=== PATIENT | female | born 1990 | race Caucasian/White ===

== ENCOUNTER 2021-03-12 16:58 | Emergency (ER) | payer SELFPAY ==
[2021-03-12 17:10] VITALS: BP 113/89; PULSE 94; RESP 16; TEMP 36.4; O2SAT 100
--- NOTE | 2021-03-12 18:52 | ED.SKABFB ---
HPI - Skin/Abscess/Foreign Bdy General Chief complaint: Skin/Abscess/Foreign Body Stated complaint: blister on bottom of r foot Source: patient and RN notes reviewed Mode of arrival: ambulatory History of Present Illness HPI narrative: This is a 30-year-old female that presented to urgent care facility with multiple open wounds to the bottom of her her right foot. According to patient she wore some shoes that was too small for her feet and had to walk a long distance and as a result she developed multiple blisters to the bottom of her feet. She attempted to burst the blisters on her own with a burned needle. The patient denies SOB, CP, palpitation, extremity numbness, lightheadedness, dizziness, constipation, diarrhea, chills, or fever. MD complaint: abscess/boil, lesion and other (Open wound) Related Data Allergies Allergy/AdvReac Type Severity Reaction Status Date / Time No Known Allergies Allergy Unverified 03/12/21 17:49 Review of Systems Review of Systems: The patient denies SOB, CP, palpitation, extremity numbness, lightheadedness, dizziness, constipation, diarrhea, chills, or fever. [facility] Family History Family History (Updated 03/12/21 @ 19:03 by TONY BhatC) Other Family history non-contributory Exam Narrative: GENERAL: This is a well-nourished, well-developed patient, in no apparent distress. HEAD: normocephalic, atraumatic. EYES: PERRL. Sclera clear/white. Vision is grossly intact. EARS: External ears normal, auditory canals clear and without drainage, TMs normal without perforation. Hearing grossly intact. NOSE: External nose normal with no obvious nasal discharge, nares without redness, no rhinorrhea. THROAT: Mucous membranes moist, posterior pharynx clear. NECK: Neck supple, non-tender without lymphadenopathy, masses or thyromegaly. CARDIOVASCULAR: Regular rate and rhythm without murmurs, gallops, or rubs. RESPIRATORY: Clear to auscultation. Breath sounds equal bilaterally. No wheezes, rales, or rhonchi. GASTROINTESTINAL: Abdomen soft, non-tender, nondistended. Bowel sounds are active. No hepato-splenomegaly, or palpable masses. No guarding. SKIN: Approximately 3 open lesions to the bottom of her feet nears her big toe and one abscess at the ball of her foot and another one on the lateral side of her foot near her small toe area edematous with erythema. Abscess with pus discharge NEURO: awake, alert, and oriented to person, place and time. There were no obvious focal neurologic abnormalities. Steady gait EXTREMITIES: Normal range of motion. No edema. No calf tenderness. Negative Homans sign bilaterally. BACK: Nontender without deformity or crepitance. No flank tenderness. Course Course Emergency Course: Patient discharged on doxycycline with instructions for cleaning Vital Signs Vital signs: Vital Signs Temperature 97.6 F 03/12/21 17:10 Pulse Rate 94 03/12/21 17:10 Respiratory Rate 16 03/12/21 17:10 Blood Pressure 113/89 03/12/21 17:10 Pulse Oximetry 100 03/12/21 17:10 Temperature 97.6 F 03/12/21 17:10 Pulse Rate 94 03/12/21 17:10 Respiratory Rate 16 03/12/21 17:10 Blood Pressure 113/89 03/12/21 17:10 Pulse Oximetry 100 03/12/21 17:10 Procedures Abscess I/D foot: Date of Incision: 03/12/21 Side (if applicable): right Technique: incised with #11 blade Amount of fluid expressed (mL): 0.5 Irrigation: Yes Packing used?: none I&D Results: Pus Complications: pain Discharge Plan Discharge Clinical Impression: Cellulitis Qualifiers: Site of cellulitis: extremity Site of cellulitis of extremity: lower extremity Laterality: right Qualified Code(s): L03.115 - Cellulitis of right lower limb Patient Disposition: Home, Self-Care Condition: Stable Instructions: Antibiotic Form, Cellulitis (ED) Additional Instructions: Take medications as prescribed. When do I need to call the doctor? Sign
== END 2021-03-12 18:59 | disposition home or self-care (01) ==
PROVIDERS: Emergency Provider Nurse Practitioner
DX: L03.115 Cellulitis of right lower limb (principal)
CPT/HCPCS: 10060; 99213; G0463

== ENCOUNTER 2025-02-23 17:14 | Emergency (ER) | payer SELFPAY ==
[2025-02-23 17:19] VITALS: BP 146/95; PULSE 100; RESP 16; TEMP 36.4; O2SAT 99
[2025-02-23 18:08] LABS: BEDSIDEPREGUCG Negative (Negative)
[2025-02-23 18:13] LABS: Add Urine Microscopic? YES; Appearance Urine Cloudy (Clear); Glucose Urine UA Negative (Negative); Leukocyte Esterase Ur 3+ LEU/UL (Negative); Nitrate Urine Negative (Negative); Non Pathogenic Casts 0-2; Specific Grav Ur 1.016 (1.001-1.035)
== END 2025-02-23 19:44 | disposition left against medical advice (07) ==
LOC: ANHED 19:50
PROVIDERS: Emergency Provider Physician Assistant
DX: N89.8 Other specified noninflammatory disorders of vagina (principal)
CPT/HCPCS: 81001; 81025; 87086; 99199